=== PATIENT | female | born 1990 ===

== ENCOUNTER 2019-08-08 12:16 | Inpatient (IN) | payer BC ==
[2019-08-08] MEDS ORDERED: Tranexamic Acid 1,000 MG in Sodium Chloride 0.9% 100 ML IV PRN (12:41)
[2019-08-08] MEDS ORDERED: Water For Irrigation,Sterile 1,000 ML Container IRR PRN (12:41)
[2019-08-08] MEDS ORDERED: Butorphanol 1 MG/ML SDV IVPUSH PRN (12:41)
[2019-08-08] MEDS ORDERED: Sodium Chloride 0.9% 10 ML Syringe FLUSH PRN (12:41)
[2019-08-08] MEDS ORDERED: Sodium Chloride 0.9% 10 ML SDV IV PRN (12:41)
[2019-08-08] MEDS ORDERED: Carboprost Tromethamine 250 MCG/1 ML Amp IM PRN (12:41)
[2019-08-08] MEDS ORDERED: Misoprostol 200 MCG Tab PO PRN (12:41)
[2019-08-08] MEDS ORDERED: Sodium Chloride 0.9% 2.5 ML Syringe FLUSH PRN (12:41)
[2019-08-08] MEDS ORDERED: Nalbuphine 10 MG/1 ML Vial IVPUSH PRN (12:41)
[2019-08-08] MEDS ORDERED: Lidocaine 1% 50 ML MDV INJECT PRN (12:41)
[2019-08-08] MEDS ORDERED: Methylergonovine 0.2 MG/1 ML Amp IM PRN (12:41)
[2019-08-08] MEDS ORDERED: Oxytocin/0.9 % Sodium Chloride 30 UNIT/500 ML BAG IV SCH (12:45)
[2019-08-08] MEDS ORDERED: Lactated Ringers 1,000 ML IV SCH (12:45)
[2019-08-08] MEDS ORDERED: Misoprostol 25 MCG (1/4 of 100 MCG) Tab PO ONE (14:02)
[2019-08-08 14:42] LABS: BLOOD UREA NITROGEN,BUN 7 mg/dL (7.0-18.0); CARBON DIOXIDE,CO2 22.6 mmol/L (21.0-32.0); CHLORIDE,CL 102 mmol/L (98-107); GLUCOSE RANDOM 74 mg/dL (74-106); POTASSIUM,K 3.7 mmol/L (3.5-5.1); SODIUM,NA 135 mmol/L (136-145)
[2019-08-08] MEDS ORDERED: Misoprostol 25 MCG (1/4 of 100 MCG) Tab VAG ONE (14:44)
[2019-08-08] MEDS ORDERED: Calcium Gluconate 10% 1 GM/10 ML SDV IV PRN (16:45)
[2019-08-08] MEDS ORDERED: Magnesium Sulfate/Water 4 GM in Premix Bag 1 BAG IV ONE (16:45)
[2019-08-08] MEDS: Magnesium Sulfate/Water 20 GM/500 ML BAG IV SCH (17:55)
[2019-08-08] MEDS: Misoprostol 25 MCG (1/4 of 100 MCG) Tab VAG SCH (19:45)
[2019-08-09] MEDS: Misoprostol 25 MCG (1/4 of 100 MCG) Tab VAG SCH ×5 (00:05→20:40)
[2019-08-09] MEDS: Magnesium Sulfate/Water 20 GM/500 ML BAG IV SCH ×3 (03:30→23:38)
[2019-08-09] MEDS ORDERED: Oxytocin/0.9 % Sodium Chloride 30 UNIT/500 ML BAG IV SCH (17:15)
[2019-08-09] MEDS ORDERED: Ropivacaine 0.2% PF 2 MG/ML 20 ML SDV ONE (23:54)
[2019-08-09] MEDS ORDERED: fentaNYL/Bupivacaine-NS 2 MCG/ML-0.125%/PF 100 ML Bag EPIDUR ONE (23:54)
[2019-08-10] MEDS ORDERED: ePHEDrine 50 MG/ML SDV ONE (00:16)
--- NOTE | 2019-08-10 00:37 | PCM.PREANE ---
Preanesthetic Assessment - Procedure Proposed Procedure: labor epidural - Anesthesia/Transfusion/Family Hx Anesthesia History: Prior Anesthesia Without Reaction Family History of Anesthesia Reaction: No Transfusion History: No Prior Transfusion(s) - Review of Systems General: No Symptoms Pulmonary: No Symptoms Cardiovascular: No Symptoms Gastrointestinal: No Symptoms Neurological: No Symptoms Other: Reports: None - Physical Assessment Height: 5 ft 3 in Weight: 80.377 kg ASA Class: 2 Mental Status: Alert & Oriented x3 Airway Class: Mallampati = 1 Dentition: Reports: Normal Dentition Thyro-Mental Finger Breadths: 3 Mouth Opening Finger Breadths: 3 ROM/Head Extension: Full Lungs: Clear to Auscultation, Normal Respiratory Effort Cardiovascular: Regular Rate, Regular Rhythm - Lab Values: Laboratory Last Values WBC 10.10 K/uL (4.0-11.0) 08/08/19 13:25 RBC 4.24 M/uL (4.30-5.90) L 08/08/19 13:25 Hgb 13.7 g/dL (12.0-16.0) 08/08/19 13:25 Hct 40.7 % (36.0-46.0) 08/08/19 13:25 MCV 96.0 fL (80.0-98.0) 08/08/19 13:25 MCH 32.3 pg (27.0-32.0) H 08/08/19 13:25 MCHC 33.7 g/dL (31.0-37.0) 08/08/19 13:25 RDW Std Deviation 45.4 fl (28.0-62.0) 08/08/19 13:25 RDW Coeff of Amanda 13 % (11.0-15.0) 08/08/19 13:25 Plt Count 247 K/uL (150-400) 08/08/19 13:25 MPV 11.40 fL (7.40-12.00) 08/08/19 13:25 Nucleated RBC % 0.0 /100WBC 08/08/19 13:25 Nucleated RBCs # 0 K/uL 08/08/19 13:25 Sodium 135 mmol/L (136-145) L 08/08/19 13:25 Potassium 3.7 mmol/L (3.5-5.1) 08/08/19 13:25 Chloride 102 mmol/L (98-107) 08/08/19 13:25 Carbon Dioxide 22.6 mmol/L (21.0-32.0) 08/08/19 13:25 BUN 7 mg/dL (7.0-18.0) 08/08/19 13:25 Creatinine 0.7 mg/dL (0.6-1.0) 08/08/19 13:25 Est Cr Clr Drug Dosing 96.33 mL/min 08/08/19 13:25 Estimated GFR (MDRD) > 60.0 ml/min 08/08/19 13:25 Glucose 74 mg/dL (74-106) 08/08/19 13:25 POC Glucose 98 mg/dL (60-110) 08/09/19 17:16 Uric Acid 6.0 mg/dL (2.6-7.2) 08/08/19 13:25 Calcium 9.1 mg/dL (8.5-10.1) 08/08/19 13:25 Magnesium 6.7 mg/dL (1.8-2.4) H 08/09/19 22:13 Total Bilirubin 0.2 mg/dL (0.2-1.0) 08/08/19 13:25 AST 22 IU/L (15-37) 08/08/19 13:25 ALT 28 IU/L (14-63) 08/08/19 13:25 Alkaline Phosphatase 146 U/L (46-116) H 08/08/19 13:25 Total Protein 6.5 g/dL (6.4-8.2) 08/08/19 13:25 Albumin 2.9 g/dL (3.4-5.0) L 08/08/19 13:25 Globulin 3.6 g/dL (2.6-4.0) 08/08/19 13:25 Albumin/Globulin Ratio 0.8 (0.9-1.6) L 08/08/19 13:25 Ur Random Creatinine 31.2 mg/dL 08/08/19 14:26 U Random Total Protein 28.7 mg/dL (<11.9) H 08/08/19 14:26 Protein/Creatinin Ratio 0.9 08/08/19 14:26 Blood Type A POSITIVE 08/08/19 13:25 Antibody Screen NEGATIVE 08/08/19 13:25 - Allergies Allergies/Adverse Reactions: Allergies Allergy/AdvReac Type Severity Reaction Status Date / Time No Known Allergies Allergy Verified 08/08/19 12:40 - Blood Blood Available: Yes Product(s) Available: PRBC - Anesthesia Plan Pre-Op Medication Ordered: None - Acknowledgements Anesthesia Type Planned: Epidural Pt an Appropriate Candidate for the Planned Anesthesia: Yes Alternatives and Risks of Anesthesia Discussed w Pt/Guardian: Yes Pt/Guardian Understands and Agrees with Anesthesia Plan: Yes Additional Comments: on Magnesium for PIH PreAnesthesia Questionnaire - Past Health History Medical/Surgical History: Denies Medical/Surgical History [employer] History: Reports: Endocrine/Metabolic History: Reports: Diabetes, Gestational - SUBSTANCE USE Smoking Status *Q: Never Smoker Second Hand Smoke Exposure: No Recreational Drug Use History: No - CURRENT (IN HOUSE) MEDS Current Meds: Current Medications Acetaminophen (Tylenol Extra Strength) 1,000 mg PO Q6H PRN PRN Reason: Headache Butorphanol Tartrate (Stadol) 1 mg IVPUSH Q1H PRN PRN Reason: Pain Last Admin: 08/09/19 18:23 Dose: 1 mg Calcium Gluconate (Calcium Gluconate) 1 gm IV ASDIRECTED PRN PRN Reason: respiratory distress Carboprost Tromethamine (Hemabate Ds) 250 mcg IM ASDIRECTED PRN PRN Reason: Post Hemorrhage Lactated Ringer's (Ringers, Lactated) 1,000 mls @ 150 mls/hr IV ASDIRECTED ROSEANNE Last Infusion: 08/08/19 17:25 Dose: 6 mls/hr Oxytocin/Sodium Chloride (Oxytocin 30 Unit/500 Ml-Ns) 30 unit in 500 mls @ 500 mls/hr IV TITRATE ROSEANNE Tranexamic Acid 1,000 mg/ (Sodium Chloride) 110 mls @ 660 mls/hr IV ONETIME PRN PRN Reason: Bleeding Magnesium Sulfate (Magnesium Sulfate In Water Premix) 20 gm in 500 mls @ 50 mls /hr IV ASDIRECTED ROSEANNE Last Admin: 08/09/19 23:38 Dose: 2 gm/hr, 50 mls/hr Oxytocin/Sodium Chloride (Oxytocin 30 Unit/500 Ml-Ns) 30 unit in 500 mls @ 2 mls/hr IV TITRATE ROSEANNE; Protocol Last Titration: 08/09/19 23:02 Dose: 18 munits/min, 18 mls/hr Lidocaine HCl (Xylocaine 1%) 50 ml INJECT ONETIME PRN PRN Reason: Laceration repair Methylergonovine Maleate (Methergine) 0.2 mg IM ASDIRECTED PRN PRN Reason: Post Hemorrhage Misoprostol (Cytotec) 200 mcg PO ONETIME PRN PRN Reason: Post Hemorrhage Misoprostol (Cytotec) 25 mcg VAG Q4H ROSEANNE Last Admin: 08/09/19 20:40 Dose: Not Given Nalbuphine HCl (Nubain) 10 mg IVPUSH Q1H PRN PRN Reason: Pain (severe 7-10) Sodium Chloride (Saline Flush) 10 ml FLUSH ASDIRECTED PRN PRN Reason: Keep Vein Open Sodium Chloride (Saline Flush) 2.5 ml FLUSH ASDIRECTED PRN PRN Reason: Keep Vein Open Sodium Chloride (Normal Saline) 10 ml IV ASDIRECTED PRN PRN Reason: IV Use Sterile Water (Sterile Water For Irrigation) 1,000 ml IRR ASDIRECTED PRN PRN Reason: delivery Discontinued Medications Ephedrine Sulfate (Ephedrine Sulfate) Confirm Administered Dose 50 mg .ROUTE .STK-MED ONE Stop: 08/10/19 00:17 Magnesium Sulfate 4 gm/ Premix 100 mls @ 300 mls/hr IV BOLUS ONE Stop: 08/08/19 17:04 Last Admin: 08/08/19 17:29 Dose: 300 mls/hr Insulin Human Regular 100 unit (/ Sodium Chloride) 100 mls @ 0.5 mls/hr IV TITRATE ROSEANNE; Protocol Misoprostol (Cytotec) 25 mcg VAG ONETIME ONE Stop: 08/08/19 14:45 Last Admin: 08/08/19 14:58 Dose: 25 mcg Ropivacaine (Naropin 0.2%) Confirm Administered Dose 20 ml .ROUTE .STK-MED ONE Stop: 08/09/19 23:55
[2019-08-10] MEDS: Acetaminophen 500 MG Tab PO PRN ×2 (02:13→20:32)
[2019-08-10] MEDS ORDERED: oxyCODONE 5 MG Tab PO PRN (03:23)
[2019-08-10] MEDS ORDERED: Lanolin 100% Cream 7 GM Tube TOP PRN (03:23)
[2019-08-10] MEDS ORDERED: Aluminum Hydroxide/Magnesium Hydroxide/Simethicone Susp 30 ML Cup PO PRN (03:23)
[2019-08-10] MEDS ORDERED: Docusate Sodium 100 MG Cap PO PRN (03:23)
[2019-08-10] MEDS ORDERED: Ondansetron 4 MG/2 ML SDV IVPUSH PRN (03:23)
[2019-08-10] MEDS ORDERED: Benzocaine/Menthol 20%-0.5% Spray 78 GM Cannister TOP PRN (03:23)
[2019-08-10] MEDS ORDERED: Ibuprofen 400 MG Tab PO PRN (03:23)
[2019-08-10] MEDS ORDERED: Bisacodyl 10 MG Supp RECTAL PRN (03:23)
[2019-08-10] MEDS ORDERED: Ibuprofen 800 MG Tab PO PRN (03:23)
[2019-08-10] MEDS ORDERED: Acetaminophen 500 MG Tab PO PRN ×2 (03:23)
[2019-08-10] MEDS ORDERED: Witch Hazel Medicated Pads 40/Jar TOP PRN (03:23)
--- NOTE | 2019-08-10 03:33 | PCM.OPNOTE ---
- General Post-Op/Procedure Note Date of Surgery/Procedure: 08/10/19 Operative Procedure(s): /1st MLL repaired Findings: Viable female APGARs 8, 9 weight 2300 gm. Spontaneous delivery intact placenta with 3V cord Pre Op Diagnosis: 37/6 week IUP. Preeclampsia. GDM-diet controlled Post-Op Diagnosis: Same Anesthesia Technique: Epidural Primary Surgeon: Mamta Arias EBL in mLs: 250 Complications: none known Condition: Stable Free Text/Narrative:: Dictation [id number]
--- NOTE | 2019-08-10 04:20 | OR ---
SURGEON: Mamta Arias M.D. DATE OF PROCEDURE: 08/10/2019 PREOPERATIVE DIAGNOSES: 1. 37 weeks intrauterine . 2. Preeclampsia. 3. Gestational diabetes, diet controlled. POSTOPERATIVE DIAGNOSES: 1. 37 weeks intrauterine . 2. Preeclampsia. 3. Gestational diabetes, diet controlled. PROCEDURE: Spontaneous vaginal delivery with first-degree laceration repair. PRIMARY SURGEON: Mamta Arias M.D. ANESTHESIA: Epidural. ESTIMATED BLOOD LOSS: 250 mL. COMPLICATIONS: None. FINDINGS: Viable female, scores 8 at one minute and 9 at five minutes. Weight of 2300 g. Spontaneous delivery, intact placenta, 3-vessel cord. DISPOSITION: nursery, mom in LDRP on magnesium recovery. PROCEDURE DETAILS: Lizzie is a 29-year-old, G1, P0, at 37 and 6-week gestational age, who presented on the afternoon of 08/09/2019 after being evaluated in clinic and found to have a diastolic blood pressure in the 110s. Therefore, she was admitted. Routine labs were drawn with [facility] labs. Her LFTs, hemoglobin, and platelets were normal. Her protein-creatinine ratio was 0.9. Given severe range of blood pressures and proteinuria, opted to proceed with magnesium prophylaxis and induction of labor. The patient initially underwent Cytotec ripening. Category 1 heart tones were observed. She is group B beta strep negative. She responded slowly to the Cytotec, received 5 doses. At that interval, she was found to be 2 cm, 60% effaced, -3 station. Therefore, a cervical ripening balloon was now placed for mechanical dilation and Pitocin was initiated. The patient continued to progress and eventually expulsed the balloon. At that time, she was found to be 4 cm, 80% effaced, -1 station, feeling labor contractions and requesting epidural. She underwent this satisfactorily, did have some initial episodes of hypotension, which were corrected, and progressed fairly rapidly thereafter. She had spontaneous rupture of membranes shortly after epidural placement with clear fluid. The patient fairly quickly over the next couple of hours, progressed to complete. I was called for delivery. Upon my arrival, the patient was placed in modified dorsal lithotomy position, was prepped and draped in the usual aseptic manner. She was found to be complete, 100% effaced, at +3 station. She began pushing efforts, pushed readily to a +4 station, was able to deliver infant's head atraumatically spontaneously, followed by anterior shoulder, posterior shoulder, remainder of body without difficulty. The infant's oropharynx and nares were bulb suctioned. Infant was handed off to her mother with attending nursing staff at her side. After a delay, cord was clamped x2 and cut. Cord arterial, cord venous, cord blood sampling were obtained. Light suprapubic pressure was applied. The placenta was delivered spontaneously intact. Vigorous fundal massage was then applied while 30 units of Pitocin was delivered in 500 mL iv fluid. Upon inspection of cervix, vaginal sidewall, and perineum, the patient was found to have a first-degree midline laceration, repaired using 3-0 Vicryl in the usual fashion and a left periurethral laceration was repaired using 3-0 Vicryl. Hemostasis appeared evident. Sponge, instrument, and needle count was correct. The patient remained on magnesium recovery, infant to nursery. CAROLYN / WILLARD /[id number] FIDEL
[2019-08-10] MEDS: Magnesium Sulfate/Water 20 GM/500 ML BAG IV SCH (09:49)
--- NOTE | 2019-08-10 11:00 | PCM.PNPP ---
- General Info Date of Service: 08/10/19 Functional Status: Reports: Pain Controlled, Tolerating Diet, Ambulating, Urinating - Review of Systems General: Reports: Fatigue. Denies: Fever, Weakness Pulmonary: Denies: Shortness of Breath Cardiovascular: Denies: Chest Pain, Palpitations, Lightheadedness Gastrointestinal: Reports: Difficulty Swallowing. Denies: Abdominal Pain, Nausea, Vomiting Genitourinary: Denies: Flank Pain Musculoskeletal: Reports: No Symptoms Skin: Reports: No Symptoms Neurological: Reports: No Symptoms Psychiatric: Reports: No Symptoms - Patient Data Weight - Most Recent: 80.377 kg I&O - Last 24 Hours: Intake & Output 08/09/19 08/10/19 08/10/19 22:59 06:59 14:59 Intake Total 384 Output Total 1767 Balance -1383 Lab Results - Last 24 Hours: Laboratory Results - last 24 hr 08/09/19 08/09/19 08/09/19 Range/Units 10:21 15:53 17:16 Cord ABG pH (7.18-7.38) Cord ABG Base Excess (-10--2) Cord VBG pH (7.25-7.45) Cord VBG Base Excess (-10--2) POC Glucose 80 98 (60-110) mg/dL Magnesium 6.2 H (1.8-2.4) mg/dL 08/09/19 08/10/19 08/10/19 Range/Units 22:13 00:38 03:01 Cord ABG pH 7.252 (7.18-7.38) Cord ABG Base Excess -6 (-10--2) Cord VBG pH 7.212 L (7.25-7.45) Cord VBG Base Excess -7 (-10--2) POC Glucose 107 (60-110) mg/dL Magnesium 6.7 H (1.8-2.4) mg/dL 08/10/19 08/10/19 Range/Units 03:49 09:58 Cord ABG pH (7.18-7.38) Cord ABG Base Excess (-10--2) Cord VBG pH (7.25-7.45) Cord VBG Base Excess (-10--2) POC Glucose (60-110) mg/dL Magnesium 6.6 H 6.8 H (1.8-2.4) mg/dL Med Orders - Current: Current Medications Acetaminophen (Tylenol Extra Strength) 1,000 mg PO Q6H PRN PRN Reason: Headache Last Admin: 08/10/19 02:13 Dose: 1,000 mg Acetaminophen (Tylenol Extra Strength) 500 mg PO Q4H PRN PRN Reason: Pain Acetaminophen (Tylenol Extra Strength) 1,000 mg PO Q4H PRN PRN Reason: Pain Al Hydroxide/Mg Hydroxide (Mag-Al Plus) 30 ml PO Q8H PRN PRN Reason: Heartburn Benzocaine/Menthol (Dermoplast Pain Relief 20%-0.5% [place]) 78 gm TOP ASDIRECTED PRN PRN Reason: Perineal Comfort Measure Last Admin: 08/10/19 05:57 Dose: 78 gm Bisacodyl (Dulcolax) 10 mg RECTAL ONETIME PRN PRN Reason: Constipation Calcium Gluconate (Calcium Gluconate) 1 gm IV ASDIRECTED PRN PRN Reason: respiratory distress Carboprost Tromethamine (Hemabate Ds) 250 mcg IM ASDIRECTED PRN PRN Reason: Post Hemorrhage Last Admin: 08/10/19 05:22 Dose: 250 mcg Docusate Sodium (Colace) 100 mg PO BID PRN PRN Reason: Constipation Emollient Ointment (Lansinoh Hpa) 0 gm TOP ASDIRECTED PRN PRN Reason: Sore Nipples Last Admin: 08/10/19 05:58 Dose: 7 gm Lactated Ringer's (Ringers, Lactated) 1,000 mls @ 150 mls/hr IV ASDIRECTED [facility] Last Infusion: 08/08/19 17:25 Dose: 6 mls/hr Oxytocin/Sodium Chloride (Oxytocin 30 Unit/500 Ml-Ns) 30 unit in 500 mls @ 500 mls/hr IV TITRATE [facility] Tranexamic Acid 1,000 mg/ (Sodium Chloride) 110 mls @ 660 mls/hr IV ONETIME PRN PRN Reason: Bleeding Magnesium Sulfate (Magnesium Sulfate In Water Premix) 20 gm in 500 mls @ 50 mls /hr IV ASDIRECTED [facility] Last Admin: 08/10/19 09:49 Dose: 2 gm/hr, 50 mls/hr Oxytocin/Sodium Chloride (Oxytocin 30 Unit/500 Ml-Ns) 30 unit in 500 mls @ 2 mls/hr IV TITRATE ROSEANNE; Protocol Last Titration: 08/10/19 03:01 Dose: 999 munits/min, 999 mls/hr Ibuprofen (Motrin) 400 mg PO Q4H PRN PRN Reason: Pain Ibuprofen (Motrin) 800 mg PO Q6H PRN PRN Reason: Pain Nalbuphine HCl (Nubain) 10 mg IVPUSH Q1H PRN PRN Reason: Pain (severe 7-10) Ondansetron HCl (Zofran) 4 mg IVPUSH Q6H PRN PRN Reason: Nausea/Vomiting Oxycodone HCl (Oxycodone) 5 mg PO Q2H PRN PRN Reason: Pain Sodium Chloride (Saline Flush) 10 ml FLUSH ASDIRECTED PRN PRN Reason: Keep Vein Open Sodium Chloride (Saline Flush) 2.5 ml FLUSH ASDIRECTED PRN PRN Reason: Keep Vein Open Sodium Chloride (Normal Saline) 10 ml IV ASDIRECTED PRN PRN Reason: IV Use Sterile Water (Sterile Water For Irrigation) 1,000 ml IRR ASDIRECTED PRN PRN Reason: delivery Last Admin: 08/10/19 03:00 Dose: 1,000 ml Witch Alaina (Tucks) 1 pad TOP ASDIRECTED PRN PRN Reason: comfort care Last Admin: 08/10/19 05:57 Dose: 1 tub Discontinued Medications Butorphanol Tartrate (Stadol) 1 mg IVPUSH Q1H PRN PRN Reason: Pain Last Admin: 08/09/19 18:23 Dose: 1 mg Ephedrine Sulfate (Ephedrine Sulfate) Confirm Administered Dose 50 mg .ROUTE .STK-MED ONE Stop: 08/10/19 00:17 Fentanyl/Bupivacaine HCl (Jzgldohh-Gqidc-Iu 2 Mcg/Ml-0.125%) 100 ml EPIDUR .STK -MED ONE Stop: 08/09/19 23:55 Magnesium Sulfate 4 gm/ Premix 100 mls @ 300 mls/hr IV BOLUS ONE Stop: 08/08/19 17:04 Last Admin: 08/08/19 17:29 Dose: 300 mls/hr Insulin Human Regular 100 unit (/ Sodium Chloride) 100 mls @ 0.5 mls/hr IV TITRATE ROSEANNE; Protocol Lidocaine HCl (Xylocaine 1%) 50 ml INJECT ONETIME PRN PRN Reason: Laceration repair Methylergonovine Maleate (Methergine) 0.2 mg IM ASDIRECTED PRN PRN Reason: Post Hemorrhage Misoprostol (Cytotec) 200 mcg PO ONETIME PRN PRN Reason: Post Hemorrhage Misoprostol (Cytotec) 25 mcg VAG ONETIME ONE Stop: 08/08/19 14:45 Last Admin: 08/08/19 14:58 Dose: 25 mcg Misoprostol (Cytotec) 25 mcg VAG Q4H ROSEANNE Last Admin: 08/09/19 20:40 Dose: Not Given Ropivacaine (Naropin 0.2%) Confirm Administered Dose 20 ml .ROUTE .STK-MED ONE Stop: 08/09/19 23:55 - Infant Interaction Support Person: Significant Other - Recovery Exam Fundal Tone: Firm Fundal Level: 1 Fingerbreadths Below Umbilicus Fundal Placement: Midline Lochia Amount: Small Lochia Color: Rubra/Red Perineum Description: Intact, Minimal Bruising/Swelling Other Perinuem Description: First degree tear Episiotomy/Laceration: Approximated Bladder Status: Voiding Urinary Elimination: Voided - Exam General: Alert, Oriented Lungs: Normal Respiratory Effort Cardiovascular: Regular Rate, Regular Rhythm GI/Abdominal Exam: Normal Bowel Sounds, Soft Extremities: Pedal Edema (trace). No: Allen's Sign Skin: Warm, Dry, Intact Neurological: No New Focal Deficit Psy/Mental Status: Alert, Normal Affect, Normal Mood - Problem List & Annotations (1) Vaginal delivery SNOMED Code(s): 666231485 Code(s): O80 - ENCOUNTER FOR FULL-TERM UNCOMPLICATED DELIVERY Status: Acute Current Visit: Yes (2) Preeclampsia SNOMED Code(s): 414427566 Code(s): O14.90 - UNSPECIFIED PRE-ECLAMPSIA, UNSPECIFIED TRIMESTER Status: Acute Current Visit: Yes - Problem List Review Problem List Initiated/Reviewed/Updated: Yes - My Orders Last 24 Hours: My Active Orders 08/09/19 17:15 Oxytocin/0.9 % Sodium Chloride [Oxytocin 30 Unit/500 ML-NS] 30 unit in 500 ml IV TITRATE 08/10/19 03:23 Patient Status [ADT] Routine May Shower [RC] ASDIRECTED Notify Provider Vital Signs [RC] ASDIRECTED Vital Signs [RC] PER UNIT ROUTINE Acetaminophen [Tylenol Extra Strength] 1,000 mg PO Q4H PRN Acetaminophen [Tylenol Extra Strength] 500 mg PO Q4H PRN Alum Hydrox/Mag Hydrox/Simeth [Mag-Al Plus] 30 ml PO Q8H PRN Benzocaine/Menthol [Dermoplast Pain Relief 20%-0.5% [place]] 78 gm TOP ASDIRECTED PRN Docusate Sodium [Colace] 100 mg PO BID PRN Ibuprofen [Motrin] 400 mg PO Q4H PRN Ibuprofen [Motrin] 800 mg PO Q6H PRN Lanolin [Lansinoh HPA] See Dose Instructions TOP ASDIRECTED PRN Ondansetron [Zofran] 4 mg IVPUSH Q6H PRN bisacodyL [Dulcolax] 10 mg RECTAL ONETIME PRN oxyCODONE 5 mg PO Q2H PRN witch Alaina [Tucks] 1 pad TOP ASDIRECTED PRN Assess Lochia [WOMSER] Per Unit Routine Assess Uterine Involution [WOMSER] Per Unit Routine Breast Pump [WOMSER] Per Unit Routine Perineal Care [OM.PC] Per Unit Routine Peripheral IV Discontinue [OM.PC] Routine 08/10/19 03:24 Cooling Warming Measures [RC] ASDIRECTED Ice Therapy [OM.PC] Per Unit Routine 08/10/19 15:00 HEMOGLOBIN/HEMATOCRIT,HH [HEME] Routine - Assessment Assessment:: PPD 0 status post Preeclampsia SGA GDM-diet controlled - Plan Plan:: Continue PP cares. Will continue magnesium prophylaxis and plan to discontinue if BPs remain in the 110-120s/70s and urine output adequate today.
--- NOTE | 2019-08-10 16:37 | PCM48HPAN ---
Post Anesthesia Note - EVALUATION WITHIN 48HRS OF ANESTHETIC Vital Signs in Normal Range: Yes Patient Participated in Evaluation: Yes Respiratory Function Stable: Yes Airway Patent: Yes Cardiovascular Function Stable: Yes Hydration Status Stable: Yes Pain Control Satisfactory: Yes Nausea and Vomiting Control Satisfactory: Yes Mental Status Recovered: Yes Vital Signs: Last Vital Signs Temp 36.3 C 08/10/19 12:00 Pulse 84 08/10/19 12:00 Resp 18 08/10/19 12:00 BP 108/66 08/10/19 12:00 Pulse Ox 96 08/10/19 12:00
[2019-08-11] MEDS: Misoprostol 25 MCG (1/4 of 100 MCG) Tab VAG SCH (08:51)
--- NOTE | 2019-08-11 08:57 | PCM.PNPP ---
- General Info Date of Service: 08/11/19 Functional Status: Reports: Pain Controlled, Tolerating Diet, Ambulating, Urinating - Review of Systems General: Reports: Fatigue. Denies: Fever, Weakness Pulmonary: Denies: Shortness of Breath Cardiovascular: Denies: Chest Pain, Palpitations, Lightheadedness Gastrointestinal: Denies: Abdominal Pain, Nausea, Vomiting Genitourinary: Denies: Flank Pain Musculoskeletal: Reports: No Symptoms Skin: Reports: No Symptoms Neurological: Reports: No Symptoms Psychiatric: Reports: No Symptoms - General Info Date of Service: 08/11/19 - Patient Data Vital Signs - Most Recent: Last Vital Signs Temp 36.9 C 08/11/19 08:00 Pulse 80 08/11/19 08:00 Resp 16 08/11/19 08:00 BP 132/95 H 08/11/19 08:00 Pulse Ox 95 08/11/19 08:00 Weight - Most Recent: 80.377 kg I&O - Last 24 Hours: Intake & Output 08/10/19 08/11/19 08/11/19 22:59 06:59 14:59 Output Total 1350 900 Balance -1350 -900 Lab Results - Last 24 Hours: Laboratory Results - last 24 hr 08/10/19 08/10/19 Range/Units 09:58 15:11 Hgb 9.8 L (12.0-16.0) g/dL Hct 29.6 L (36.0-46.0) % Magnesium 6.8 H (1.8-2.4) mg/dL Med Orders - Current: Current Medications Acetaminophen (Tylenol Extra Strength) 1,000 mg PO Q6H PRN PRN Reason: Headache Last Admin: 08/10/19 20:32 Dose: 1,000 mg Acetaminophen (Tylenol Extra Strength) 500 mg PO Q4H PRN PRN Reason: Pain Acetaminophen (Tylenol Extra Strength) 1,000 mg PO Q4H PRN PRN Reason: Pain Al Hydroxide/Mg Hydroxide (Mag-Al Plus) 30 ml PO Q8H PRN PRN Reason: Heartburn Benzocaine/Menthol (Dermoplast Pain Relief 20%-0.5% [place]) 78 gm TOP ASDIRECTED PRN PRN Reason: Perineal Comfort Measure Last Admin: 08/10/19 05:57 Dose: 78 gm Bisacodyl (Dulcolax) 10 mg RECTAL ONETIME PRN PRN Reason: Constipation Carboprost Tromethamine (Hemabate Ds) 250 mcg IM ASDIRECTED PRN PRN Reason: Post Hemorrhage Last Admin: 08/10/19 05:22 Dose: 250 mcg Docusate Sodium (Colace) 100 mg PO BID PRN PRN Reason: Constipation Last Admin: 08/10/19 20:33 Dose: 100 mg Emollient Ointment (Lansinoh Hpa) 0 gm TOP ASDIRECTED PRN PRN Reason: Sore Nipples Last Admin: 08/10/19 05:58 Dose: 7 gm Lactated Ringer's (Ringers, Lactated) 1,000 mls @ 150 mls/hr IV ASDIRECTED ROSEANNE Last Infusion: 08/08/19 17:25 Dose: 6 mls/hr Oxytocin/Sodium Chloride (Oxytocin 30 Unit/500 Ml-Ns) 30 unit in 500 mls @ 500 mls/hr IV TITRATE ROSEANNE Tranexamic Acid 1,000 mg/ (Sodium Chloride) 110 mls @ 660 mls/hr IV ONETIME PRN PRN Reason: Bleeding Oxytocin/Sodium Chloride (Oxytocin 30 Unit/500 Ml-Ns) 30 unit in 500 mls @ 2 mls/hr IV TITRATE ROSEANNE; Protocol Last Titration: 08/10/19 03:01 Dose: 999 munits/min, 999 mls/hr Ibuprofen (Motrin) 400 mg PO Q4H PRN PRN Reason: Pain Ibuprofen (Motrin) 800 mg PO Q6H PRN PRN Reason: Pain Nalbuphine HCl (Nubain) 10 mg IVPUSH Q1H PRN PRN Reason: Pain (severe 7-10) Ondansetron HCl (Zofran) 4 mg IVPUSH Q6H PRN PRN Reason: Nausea/Vomiting Oxycodone HCl (Oxycodone) 5 mg PO Q2H PRN PRN Reason: Pain Sodium Chloride (Saline Flush) 10 ml FLUSH ASDIRECTED PRN PRN Reason: Keep Vein Open Sodium Chloride (Saline Flush) 2.5 ml FLUSH ASDIRECTED PRN PRN Reason: Keep Vein Open Sodium Chloride (Normal Saline) 10 ml IV ASDIRECTED PRN PRN Reason: IV Use Sterile Water (Sterile Water For Irrigation) 1,000 ml IRR ASDIRECTED PRN PRN Reason: delivery Last Admin: 08/10/19 03:00 Dose: 1,000 ml Jammie Brandt (Tucks) 1 pad TOP ASDIRECTED PRN PRN Reason: comfort care Last Admin: 08/10/19 05:57 Dose: 1 tub Discontinued Medications Butorphanol Tartrate (Stadol) 1 mg IVPUSH Q1H PRN PRN Reason: Pain Last Admin: 08/09/19 18:23 Dose: 1 mg Calcium Gluconate (Calcium Gluconate) 1 gm IV ASDIRECTED PRN PRN Reason: respiratory distress Ephedrine Sulfate (Ephedrine Sulfate) Confirm Administered Dose 50 mg .ROUTE .STK-MED ONE Stop: 08/10/19 00:17 Last Admin: 08/10/19 22:55 Dose: Not Given Fentanyl/Bupivacaine HCl (Lpgrwdav-Ghmex-Pa 2 Mcg/Ml-0.125%) 100 ml EPIDUR .STK -MED ONE Stop: 08/09/19 23:55 Magnesium Sulfate 4 gm/ Premix 100 mls @ 300 mls/hr IV BOLUS ONE Stop: 08/08/19 17:04 Last Admin: 08/08/19 17:29 Dose: 300 mls/hr Magnesium Sulfate (Magnesium Sulfate In Water Premix) 20 gm in 500 mls @ 50 mls /hr IV ASDIRECTED ROSEANNE Last Infusion: 08/10/19 15:45 Dose: 0 gm/hr, 0 mls/hr Insulin Human Regular 100 unit (/ Sodium Chloride) 100 mls @ 0.5 mls/hr IV TITRATE ROSEANNE; Protocol Lidocaine HCl (Xylocaine 1%) 50 ml INJECT ONETIME PRN PRN Reason: Laceration repair Methylergonovine Maleate (Methergine) 0.2 mg IM ASDIRECTED PRN PRN Reason: Post Hemorrhage Misoprostol (Cytotec) 200 mcg PO ONETIME PRN PRN Reason: Post Hemorrhage Misoprostol (Cytotec) 25 mcg VAG ONETIME ONE Stop: 08/08/19 14:45 Last Admin: 08/08/19 14:58 Dose: 25 mcg Misoprostol (Cytotec) 25 mcg VAG Q4H ROSEANNE Last Admin: 08/11/19 08:51 Dose: Not Given Ropivacaine (Naropin 0.2%) Confirm Administered Dose 20 ml .ROUTE .STK-MED ONE Stop: 08/09/19 23:55 Last Admin: 08/10/19 22:55 Dose: Not Given - Infant Interaction Support Person: Significant Other - Recovery Exam Fundal Tone: Firm Fundal Level: 1 Fingerbreadths Below Umbilicus Fundal Placement: Midline Lochia Amount: Small Lochia Color: Rubra/Red Perineum Description: Other (see below) Other Perinuem Description: First degree tear Episiotomy/Laceration: Approximated Bladder Status: Voiding Urinary Elimination: Voided - Exam General: Alert, Oriented Lungs: Normal Respiratory Effort Cardiovascular: Regular Rate, Regular Rhythm GI/Abdominal Exam: Normal Bowel Sounds, Soft Extremities: Pedal Edema (trace). No: Allen's Sign Skin: Warm, Dry, Intact Neurological: No New Focal Deficit Psy/Mental Status: Alert, Normal Affect, Normal Mood - Problem List & Annotations (1) Vaginal delivery SNOMED Code(s): 645668984 Code(s): O80 - ENCOUNTER FOR FULL-TERM UNCOMPLICATED DELIVERY Status: Acute Current Visit: Yes (2) Preeclampsia SNOMED Code(s): 235150325 Code(s): O14.90 - UNSPECIFIED PRE-ECLAMPSIA, UNSPECIFIED TRIMESTER Status: Acute Current Visit: Yes - Problem List Review Problem List Initiated/Reviewed/Updated: Yes - My Orders Last 24 Hours: My Active Orders 08/11/19 08:54 Ready for Discharge [RC] PER UNIT ROUTINE - Assessment Assessment:: PPD 1 status post Preeclampsia SGA GDM-diet controlled - Plan Plan:: Blood pressures remain normal. Has good diuresis. Patient feels well. Would like to go home today and can monitor BP at home. Agrees to call if >140/90. Glucoses have been normal. Plan 75 gm GTT at PP visit. Discharge to home. Discharge instructions reviewed. Infection, bleeding warnings reviewed.
== END 2019-08-11 11:40 | disposition home or self-care (01) | DRG 560 ==
LOC: MW.OB 12:16 → OBSVTOIN 08-10 03:23 → MW.OB 08-10 07:15
PROVIDERS: ADMIT Obstetrics & Gynecology; ATTEND Obstetrics & Gynecology
PROC: 10E0XZZ Delivery of Products of Conception, External Approach (ICD-10-PCS; principal; 2019-08-10)
PROC: 0HQ9XZZ Repair Perineum Skin, External Approach (ICD-10-PCS; 2019-08-10)
PROC: 3E0P7VZ Introduction of Hormone into Female Reproductive, Via Natural or Artificial Opening (ICD-10-PCS; 2019-08-10)
PROC: 3E0R3BZ Introduction of Anesthetic Agent into Spinal Canal, Percutaneous Approach (ICD-10-PCS; 2019-08-10)
DX: O14.14 Severe pre-eclampsia complicating childbirth (principal); Z3A.37 37 weeks gestation of pregnancy; Z37.0 Single live birth; O24.420 Gestational diabetes mellitus in childbirth, diet controlled; O70.0 First degree perineal laceration during delivery
CPT/HCPCS: 36415; 51702; 59025; 59409; 80053; 82570; 82803; 82962; 83735; 84156; 84550; 85014; 85018; 85027; 86592; 86593; 86850; 86900; 86901; A9270-GY; J0595; J2590; J2795; J3475; J7120

== ENCOUNTER 2021-07-17 00:13 | Inpatient (IN) | payer BC ==
[2021-07-17] MEDS ORDERED: Ondansetron 4 MG/2 ML SDV IVPUSH PRN (00:17)
[2021-07-17] MEDS ORDERED: Butorphanol 1 MG/ML SDV IVPUSH PRN (00:17)
[2021-07-17] MEDS ORDERED: Sodium Chloride 0.9% 10 ML Syringe FLUSH PRN (00:17)
[2021-07-17] MEDS ORDERED: Carboprost Tromethamine 250 MCG/1 ML Amp IM PRN (00:17)
[2021-07-17] MEDS ORDERED: Lidocaine 1% 50 ML MDV INJECT PRN (00:17)
[2021-07-17] MEDS ORDERED: Methylergonovine 0.2 MG/1 ML Amp IM PRN (00:17)
[2021-07-17] MEDS ORDERED: Sodium Chloride 0.9% 20 ML SDV IV PRN (00:17)
[2021-07-17] MEDS ORDERED: Misoprostol 25 MCG (1/4 of 100 MCG) Tab VAG PRN (00:17)
[2021-07-17] MEDS ORDERED: Sodium Chloride 0.9% 2.5 ML Syringe FLUSH PRN (00:17)
[2021-07-17] MEDS ORDERED: Tranexamic Acid 1,000 MG in Sodium Chloride 0.9% 100 ML IV PRN (00:17)
[2021-07-17] MEDS ORDERED: Terbutaline 1 MG/ML SDV SUBCUT PRN (00:17)
[2021-07-17] MEDS ORDERED: Misoprostol 200 MCG Tab PO PRN (00:17)
[2021-07-17] MEDS ORDERED: Water For Irrigation,Sterile 1,000 ML Container IRR PRN (00:17)
[2021-07-17] MEDS ORDERED: Oxytocin/0.9 % Sodium Chloride 30 UNIT/500 ML BAG IV SCH ×2 (00:30)
[2021-07-17] MEDS: Sodium Chloride 0.9% 1,000 ML IV SCH ×3 (04:59→08:26)
[2021-07-17] MEDS ORDERED: Phenylephrine 1% 10 MG/ML SDV IV PRN (05:58)
[2021-07-17] MEDS ORDERED: ePHEDrine 50 MG/ML SDV IVPUSH PRN (05:58)
[2021-07-17] MEDS ORDERED: Ropivacaine 200 MG in Premix Bag 1 BAG EPIDUR SCH (06:00)
[2021-07-17] MEDS: Ropivacaine 100 ML ONE ×2 (06:15→11:16)
[2021-07-17] MEDS ORDERED: fentaNYL 100 MCG/2 ML SDV ONE (07:23)
[2021-07-17] MEDS ORDERED: Lidocaine 2% with EPINEPHrine 1:200,000 20 ML SDV ONE (07:23)
[2021-07-17] MEDS ORDERED: Acetaminophen 500 MG Tab PO PRN (13:54)
[2021-07-17] MEDS ORDERED: Lanolin 100% Cream 7 GM Tube TOP PRN (13:54)
[2021-07-17] MEDS ORDERED: Benzocaine/Menthol 20%-0.5% Spray 78 GM Cannister TOP PRN (13:54)
[2021-07-17] MEDS ORDERED: Ibuprofen 400 MG Tab PO PRN (13:54)
[2021-07-17] MEDS ORDERED: Bisacodyl 10 MG Supp RECTAL PRN (13:54)
[2021-07-17] MEDS ORDERED: Witch Hazel Medicated Pads 40/Jar TOP PRN (13:54)
[2021-07-17] MEDS ORDERED: oxyCODONE 5 MG Tab PO PRN (13:54)
[2021-07-17] MEDS: Docusate Sodium 100 MG Cap PO PRN (16:03)
[2021-07-17] MEDS: Ibuprofen 800 MG Tab PO PRN (16:03)
[2021-07-17] MEDS: Acetaminophen 500 MG Tab PO PRN (16:04)
[2021-07-18] MEDS: Ibuprofen 800 MG Tab PO PRN ×2 (01:41→10:39)
[2021-07-18] MEDS: Docusate Sodium 100 MG Cap PO PRN (08:47)
[2021-07-18] MEDS: Acetaminophen 500 MG Tab PO PRN ×2 (08:48→16:17)
== END 2021-07-18 16:55 | disposition home or self-care (01) | DRG 560 ==
LOC: MW.OB 00:13 → OBSVTOIN 13:14 → MW.OB 13:14
PROVIDERS: ADMIT Obstetrics & Gynecology; ATTEND Obstetrics & Gynecology
PROC: 10E0XZZ Delivery of Products of Conception, External Approach (ICD-10-PCS; principal; 2021-07-17)
PROC: 0KQM0ZZ Repair Perineum Muscle, Open Approach (ICD-10-PCS; 2021-07-17)
PROC: 3E0R3BZ Introduction of Anesthetic Agent into Spinal Canal, Percutaneous Approach (ICD-10-PCS; 2021-07-17)
PROC: 00HU33Z Insertion of Infusion Device into Spinal Canal, Percutaneous Approach (ICD-10-PCS; 2021-07-17)
DX: O24.420 Gestational diabetes mellitus in childbirth, diet controlled (principal); Z37.0 Single live birth; O98.52 Other viral diseases complicating childbirth; U07.1 COVID-19; O70.1 Second degree perineal laceration during delivery; O14.14 Severe pre-eclampsia complicating childbirth; Z3A.39 39 weeks gestation of pregnancy
CPT/HCPCS: 01967; 36415; 51702; 59025; 59409; 82803; 82947; 85014; 85018; 85027; 86592; 86850; 86900; 86901; A9270-GY; J0595; J2370; J2405; J2590; J2795; J3010; J7030; U0002